=== PATIENT | female | born 1970 | race Caucasian/White ===

== ENCOUNTER 2022-01-28 05:32 | Day surgery (SDC) | payer BC ==
[2022-01-26 11:09] VITALS: BMI 28.3
[2022-01-28] MEDS ORDERED: Dexamethasone 20 MG/5 ML VIAL ONE (06:21)
[2022-01-28] MEDS ORDERED: PROPOFOL 20 ML ONE (06:21)
[2022-01-28] MEDS ORDERED: Ondansetron PF 4 MG/2 ML Vial ONE ×2 (06:21→08:14)
[2022-01-28] MEDS ORDERED: Fentanyl 100 MCG/2 ML VIAL ONE (06:21)
[2022-01-28] MEDS ORDERED: Lidocaine 4% PF 5 ML AMP ONE (06:21)
[2022-01-28] MEDS ORDERED: Ketorolac Tromethamine 30 MG/ML VIAL ONE ×2 (06:25→08:14)
[2022-01-28] MEDS ORDERED: Scopolamine 1.5 mg/72 hour Patch ONE (06:49)
[2022-01-28] MEDS ORDERED: Midazolam HCl 2 mg/2 ml Vial ONE (06:49)
[2022-01-28] MEDS ORDERED: metroNIDAZOLE 500 MG/100 ML BAG ONE (06:51)
[2022-01-28] MEDS ORDERED: Metoclopramide HCl 10 MG/2 ML VIAL ONE (09:21)
== END 2022-01-28 09:50 | disposition home or self-care (01) ==
LOC: CSHSDC 05:32
PROVIDERS: ATTEND Obstetrics & Gynecology
PROC: 0U5B8ZZ Destruction of Endometrium, Via Natural or Artificial Opening Endoscopic (ICD-10-PCS; principal; 2022-01-28)
PROC: 0UDB8ZZ Extraction of Endometrium, Via Natural or Artificial Opening Endoscopic (ICD-10-PCS; principal; 2022-01-28)
PROC: 0UDB8ZX Extraction of Endometrium, Via Natural or Artificial Opening Endoscopic, Diagnostic (ICD-10-PCS; principal; 2022-01-28)
DX: D25.9 Leiomyoma of uterus, unspecified (principal); N92.0 Excessive and frequent menstruation with regular cycle; C50.919 Malignant neoplasm of unspecified site of unspecified female breast; Z90.12 Acquired absence of left breast and nipple
CPT/HCPCS: 88305; J1100; J1885; J2250; J2405; J2704; J2765; J3010

== ENCOUNTER 2024-10-29 12:43 | Outpatient (CLI) | payer BC | END 2024-10-29 12:44 | disposition home or self-care (01) | LOC: CSHCT 12:43 | PROVIDERS: ATTEND Orthopaedic Surgery Hand Surgery | DX: S62.501A Fracture of unspecified phalanx of right thumb, initial encounter for closed fracture (principal); S62.171A Displaced fracture of trapezium [larger multangular], right wrist, initial encounter for closed fracture; M89.9 Disorder of bone, unspecified ==